=== PATIENT | female | born 1965 | race Caucasian/White ===

== ENCOUNTER 2018-02-03 11:00 | Emergency (ER) | payer MEDICAID ==
--- NOTE | 2018-02-03 11:57 | EDPHY ---
H & P Time Seen by Provider: 02/03/18 11:16 HPI/ROS: CLINICAL IMPRESSION: Closed, right, 5th metatarsal fracture ASSESSMENT/PLAN: 52-year-old female presents to the emergency department with a closed right 5th metatarsal midshaft fracture after tripping on a curb today. She is neurovascularly intact. No ankle or lower leg pain. Patient was placed in a posterior short-leg splint and provided crutches. Rice treatment discussed, orthopedic follow-up encouraged and referral given, warning signs return to ED sooner alignment discharge. DIFFERENTIAL DX: Differential includes but not limited to acute fracture, contusion, Lisfranc injury, ligamentous injury ED PROCEDURES: Procedure: Splint placement. A posterior short-leg splint was applied to right lower leg by certified cytotechnologist, supervised by myself. Crutches supplied After application of the splint I returned and re-examined the patient. The splint was adequately immobilizing the joint and distal to the splint the patient's circulation and sensation was intact. ED COURSE: CHIEF COMPLAINT: Right foot pain HPI: 52-year-old female presents to the emergency department with a right foot injury after she tripped on a curb. Patient is reporting pain along the lateral aspect of the foot. No ankle pain. No open wounds. No reported numbness or loss of sensation. No other injury. PAST MEDICAL HISTORY: None reported Pertinent Past Surgical History: None reported Social History: Otherwise healthy REVIEW OF SYSTEMS: All other systems negative Constitutional: No fever, no chills Musculoskeletal: No deformity, + joint pain Skin: No rashes, color change or open wounds. Neurological: No sensory loss or weakness. PHYSICAL EXAM: General Appearance: Alert, oriented, appropriate for age, cooperative, NAD, well hydrated, non-toxic appearing, VSS, no hypoxia. Neurological: Alert and oriented x 3, normal sensation and strength of extremities Skin: Warm, dry, no rashes, no nodules on palpation. Musculoskeletal: No open wounds. Tender to palpation along the mid right 5th metatarsal. Pedal and posterior tibialis pulses intact. No reproducible ankle or lower leg pain. MEDICAL DECISION MAKING: Patient was seen independently. Secondary supervising physician at time of evaluation was Dr. Montemayor. Diagnosis: Closed right 5th metatarsal fracture . New, requires workup Summary: See assessment and plan for summary of ED visit Independent visualization of images, tracing, or specimens yes. Patient Progress: Stable . Smoking Status: Current every day smoker Constitutional: Initial Vital Signs Temperature (C) 36.5 C 02/03/18 11:16 Heart Rate 66 02/03/18 11:16 Respiratory Rate 18 02/03/18 11:16 Blood Pressure 130/101 H 02/03/18 11:16 O2 Sat (%) 97 02/03/18 11:16 O2 Delivery Mode Room Air Allergies/Adverse Reactions: Sulfa (Sulfonamide Antibiotics) Allergy (Verified 02/03/18 11:15) Home Medications: Medication Instructions Recorded Lisinopril/Hctz 10/12.5 mg 02/03/18 MDM/Departure - MDM Imaging Results: Imaging Impressions Foot X-Ray 02/03/18 11:18 Impression: Mildly displaced and comminuted oblique fracture in the distal diaphysis of the right fifth metatarsal. Imaging: I viewed and interpreted images myself - Depart Disposition: Home, Routine, Self-Care Clinical Impression: Fracture of fifth metatarsal bone of right foot Qualifiers: Encounter type: initial encounter Fracture type: closed Fracture alignment: displaced Qualified Code(s): S92.351A - Displaced fracture of fifth metatarsal bone, right foot, initial encounter for closed fracture Condition: Good Instructions: Foot Fracture in Adults (ED) Additional Instructions: DISCHARGE INSTRUCTIONS FROM YOUR DOCTOR Thank you for visiting our emergency department today. Please keep in mind that discharge from the emergency department does not mean that there is nothing wrong - it simply means that we have not identified an emergency condition that requires further evaluation or treatment in the hospital. You should always plan to follow up with primary care for re-evaluation of your condition in the next 2-3 days. If you have been referred to a specialist, please call as soon as possible (today or tomorrow) to schedule your follow up appointment at the appropriate time. You have a fracture of the 5th metatarsal bone of the right foot. This needs orthopedic evaluation. An orthopedic referral was given. Please call on Monday for an appointment. Keep your splint on until you see Orthopedics. Rest and elevate the affected extremity as much as possible. Ice the affected areas 20 min on, 20 min off for the next several days. Please use Tylenol or ibuprofen over the counter in appropriate doses as outlined on your discharge papers. Take ibuprofen with food and a large glass of water. Return to the emergency department immediately for severe pain, loss of sensation to the foot or toes, loss of coloration to the foot or toes, fevers greater than 100.4, or any other concern. People present with illnesses and injuries in different ways, and it is always possible that we have missed something. You may always return for re-evaluation if symptoms worsen or if they are not improving or if you develop new/different symptoms. Again, thank you for choosing our emergency department. We hope that you feel better. Referrals: NONE *PRIMARY CARE P,. [Primary Care Provider] - As per Instructions Hari Treadwell MD [Medical Doctor] - 1-2 days without fail
[2018-02-03 12:22] VITALS: BP 124/90
== END 2018-02-03 12:21 | disposition home or self-care (01) ==
DX: S92.351A Displaced fracture of fifth metatarsal bone, right foot, initial encounter for closed fracture (principal); W10.1XXA Fall (on)(from) sidewalk curb, initial encounter